=== PATIENT | female | born 1950 | race Caucasian/White ===

== ENCOUNTER → 2024-08-16 | Outpatient (CLI) | payer MEDICARE, SELFPAY ==
[2024-08-16 10:51] LABS: Free T4 (Free Thyroxine) 1.12 ng/dL (0.89-1.76)
[2024-08-26 06:30] LABS: T3, Reverse, LC/MS/MS* 19 ng/dL (8-25)
== END | disposition home or self-care (01) ==
LOC: COPL 09:11
PROVIDERS: PCP Family Medicine; Referring Provider Family Medicine; Visit Provider Family Medicine
DX: E03.9 Hypothyroidism, unspecified (principal)
CPT/HCPCS: 36415; 84439; 84481; 84482